=== PATIENT | female | born 1980 | race Caucasian/White ===

== ENCOUNTER 2021-07-17 12:13 | Emergency (ER) | payer OTHER, MEDICAID ==
[~2021-07-17] VITALS: Ht 162.6 cm; Wt 70.3 kg
[~2021-07-17 12:13] MED LIST: BACTRIM DS TAB1 EACH PO; SYMBICORT160 MCG/4. INH
[2021-07-17] MEDS ORDERED: PROAIR HFA8.5 GM INH (12:25)
[2021-07-17 14:54] LABS: ABSOLUTE EOSINOPHILS 0.3 thou/uL (0.0-0.7); ABSOLUTE LYMPHOCYTES 1.7 thou/uL (0.8-5.3); ABSOLUTE MONOCYTES 0.4 thou/uL (0.0-1.2); ABSOLUTE NEUTROPHILS 5.8 thou/uL (1.6-8.1); BASOPHILS 0.4 %; EOSINOPHILS 3.5 %; HEMATOCRIT 37.4 % (37.0-47.0); HEMOGLOBIN 11.9 gm/dL (12.0-15.0); MCH 20.3 pg (26.0-34.0); MCHC 31.9 g/dL (28.0-37.0); MCV 63.7 fL (80.0-100.0); MONOCYTES 5.4 %; MPV 8.2 fl. (7.2-11.1); NUCLEATED RBCS 0 /100WBC; PLATELET COUNT* 245 thou/uL (150-400); POLYS 69.7 %; RBC 5.88 mil/uL (4.20-5.00); WBC 8.3 thou/uL (4.0-11.0)
[2021-07-17 15:06] LABS: CREATININE 0.7 mg/dL (0.6-1.3); POTASSIUM 3.9 mmol/L (3.5-5.1)
[2021-07-17 15:07] LABS: ALBUMIN 4.2 g/dL (3.4-5.0); TOTAL BILIRUBIN 0.6 mg/dL (<0.1-1.0)
[2021-07-17 15:12] LABS: PLATELET ESTIMATE ADEQUATE
[2021-07-17 15:13] LABS: ANISOCYTOSIS 2+; MICROCYTES 2+
[2021-07-17] MEDS ORDERED: TRANSDERM-SCOP1 EACH TRANSDERM (15:52)
[2021-07-17 16:08] VITALS: BP 130/78
== END 2021-07-17 16:09 | disposition home or self-care (01) ==
LOC: M.ERS 12:13
PROVIDERS: Emergency Medicine Emergency Medical Services
DX: H81.11 Benign paroxysmal vertigo, right ear (principal); Z79.51 Long term (current) use of inhaled steroids